=== PATIENT | female | born 1960 | race Caucasian/White ===

== ENCOUNTER 2017-08-16 13:20 | Emergency (ER) | payer MEDICAID ==
[~2017-08-16] VITALS: Ht 167.6 cm; Wt 113.9 kg
[2017-08-16 13:22] VITALS: Ht 167.6 cm; Wt 113.9 kg
[2017-08-16] MEDS ORDERED: ONDANSETRON 4 MG INJ IV STA (16:09)
--- NOTE | 2017-08-16 16:22 | ERD ---
ER Documentation Chief Complaint Chief Complaint n/v for past 2 weeks, was seen at [facility] last saturday then by pmd laron SHERWOOD This a 56-year-old female who presents the emergency department today complaining of dizziness nausea and some headache for the past 13 days. Patient states that she was seen at an outside hospital and was given [place] and Zofran but her symptoms have not improved. She did state that she follow-up with her primary care doctor and was given nasal spray. Denies any fevers or chills. ROS All systems reviewed and are negative except as per history of present illness. Medications Home Meds Active Scripts Naproxen* (Naprosyn*) 500 Mg Tablet, 500 MG PO BID Y for PAIN AND/OR INFLAMMATION, #30 TAB Prov:SHENG CARTAGENA PA-C 08/16/17 Meclizine Hcl* (Antivert*) 12.5 Mg Tab, 25 MG PO Q6H Y for DIZZINESS, #20 TAB Prov:SHENG CARTAGENA PA-C 08/16/17 Ondansetron Hcl* (Zofran*) 4 Mg Tablet, 4 MG PO Q6H for NAUSEA AND/OR VOMITING, #30 TAB Prov:SHENG CARTAGENA PA-C 08/16/17 Reported Medications [None] No Conflict Check 07/28/12 Allergies Allergies: Coded Allergies: No Known Allergies (Verified Allergy, 07/28/12) PMhx/Soc History of Surgery: Yes (TONSILS,BTL) Anesthesia Reaction: No Hx Neurological Disorder: No Hx Respiratory Disorders: No Hx Cardiac Disorders: No Hx Psychiatric Problems: No Hx Miscellaneous Medical Probl: No Hx Alcohol Use: No Hx Substance Use: No Hx Tobacco Use: No Smoking Status: Never smoker Physical Exam Vitals Vital Signs Date Time Temp Pulse Resp B/P Pulse Ox O2 Delivery O2 Flow Rate FiO2 08/16/17 13:22 97.9 63 18 129/69 97 Physical Exam Const: NAD Head: Atraumatic Eyes: Normal Conjunctiva. PERRLA, EOM int act ENT: Normal. Nose no drainage. Throat erythema no exudate Neck: Full range of motion..~ No meningismus. Resp: Clear to auscultation bilaterally Cardio: Regular rate and rhythm, no murmurs Abd: Soft, non tender, non distended. Normal bowel sounds Skin: No petechiae or rashes Back: No midline or flank tenderness Ext: No cyanosis, or edema Neur: Awake and alert cranial nerves II through XII intact. No gait ataxia. Negative Romberg. Psych: Normal Mood and Affect Result Diagram: 08/16/17 1632 08/16/17 1632 Results 24 hrs Laboratory Tests Test 08/16/17 16:30 08/16/17 16:32 Urine Color YELLOW Urine Clarity CLEAR Urine pH 6.0 Urine Specific [place] 1.012 Urine Ketones 1+mg/dL Urine Nitrite NEGATIVEmg/dL Urine Bilirubin NEGATIVEmg/dL Urine Urobilinogen NEGATIVEmg/dL Urine Leukocyte Esterase TRACELeu/ul Urine Microscopic RBC 1/HPF Urine Microscopic WBC 5/HPF Urine Squamous Epithelial Cells FEW/HPF Urine Hemoglobin 1+mg/dL Urine Glucose NEGATIVEmg/dL Urine Total Protein NEGATIVEmg/dl White Blood Count 9.810^3/ul Red Blood Count 4.6010^6/ul Hemoglobin 13.3g/dl Hematocrit 41.0% Mean Corpuscular Volume 89.1fl Mean Corpuscular Hemoglobin 28.9pg Mean Corpuscular Hemoglobin Concent 32.4g/dl Red Cell Distribution Width 14.1% Platelet Count 13555^3/UL Mean Platelet Volume 10.2fl Neutrophils % 75.8% Lymphocytes % 19.6% Monocytes % 3.7% Eosinophils % 0.1% Basophils % 0.5% Nucleated Red Blood Cells % 0.0/100WBC Neutrophils # 7.510^3/ul Lymphocytes # 1.910^3/ul Monocytes # 0.410^3/ul Eosinophils # 0.010^3/ul Basophils # 0.110^3/ul Nucleated Red Blood Cells # 0.010^3/ul Sodium Level 144mmol/L Potassium Level 4.0mmol/L Chloride Level 105mmol/L Carbon Dioxide Level 25mmol/L Anion Gap 18 Blood Urea Nitrogen 9mg/dl Creatinine 0.55mg/dl Glucose Level 109mg/dl Calcium Level 9.3mg/dl Total Bilirubin 0.8mg/dl Direct Bilirubin 0.00mg/dl Indirect Bilirubin 0.8mg/dl Aspartate Amino Transf (AST/SGOT) 22IU/L Alanine Aminotransferase (ALT/SGPT) 33IU/L Alkaline Phosphatase 104IU/L Total Protein 7.7g/dl Albumin 4.3g/dl Globulin 3.40g/dl Albumin/Globulin Ratio 1.26 Current Medications Medications (Trade) Dose Ordered Sig/Kadeem Route PRN Reason Start Time Stop Time Status Last Admin Dose Admin Ondansetron HCl (Zofran Inj) 4 mg ONCE STAT IV 08/16/17 16:09 08/16/17 16:12 DC 08/16/17 16:26 Meclizine HCl (Antivert) 25 mg ONCE ONCE PO 08/16/17 16:30 08/16/17 16:31 DC 08/16/17 16:27 Ketorolac Tromethamine (Toradol) 30 mg ONCE STAT IV 08/16/17 16:56 08/16/17 16:57 DC 08/16/17 16:59 DIAGNOSTIC IMAGING REPORT Patient: MAEGAN KHAN : 1960 Age: 56 Sex: F MR #: [id number] DOS: 08/16/17 0000 Ordering MD: SHENG CARTAGENA PA-C Location: [facility] Room/Bed: PROCEDURE: CT Brain without contrast. CLINICAL INDICATION: Headaches. Neurologic deficit TECHNIQUE: A CT of the brain was performed on multidetector high-resolution CT scanner utilizing axial sections from the skull base through the vertex without contrast. One or more of the following dose reduction techniques were used: Automated exposure control, Adjustment of the mA and/or kV according to patient size, and/or use of iterative reconstruction technique. DICOM images are available. DOSE: CTDI = 44 mGy and the DLP = 720 mGy-cm. COMPARISON: None available FINDINGS: No acute intracranial hemorrhage, significant mass effect or midline shift. The saha-white differentiation is grossly preserved. The ventricles are normal in size for age. No significant opacification of the visualized paranasal sinuses or mastoids. IMPRESSION: No acute intracranial findings. RPTAT: AA .Keenan Hays MD, Date Time Electronically viewed and signed by .Keenan Hays MD, on 08/16/2017 16:40 .T/ CC: SHENG CARTAGENA PA-C Procedures/[facility] This 56-year-old female who presents the emergency department today complaining of dizziness, nausea and slight headache is been intermittent for the past 2 weeks. Patient was seen at [place] approximately 1 week ago and patient did bring paperwork with her and it looks like she was evaluated for abdominal pain. When questioned patient about that she said that she told that she was dizzy but also had abdominal pain at that time and her workup was negative. Patient denies any abdominal pain today. Patient indicated that the dizziness is worse when she moves her head to the right. She is afebrile and otherwise well-appearing however given her duration of symptoms I did obtain laboratory workup as well as a head CT Laboratory workup shows no elevated white blood cell count. She is not anemic. Platelets are within normal limits. UA shows leukocyte esterase Urine test is negative Head CT non contrast shows no acute intracranial findings. There is no intracranial hemorrhage, mass-effect or midline shift EKG read and interpreted by Dr. Ybarra rate [address] elevation. No QT prolongation. Normal sinus rhythm. Low suspicion for acute [place]. Patient has no focal neurologic deficits and she has a negative Romberg gait ataxia. Patient was given Zofran, toradol, and meclizine here in the emergency department symptoms improved. Patient symptoms at this time is consistent with dizziness of uncertain etiology however may be positional vertigo nausea and vomiting. Patient is not actively vomiting here in the emergency department.. Low suspicion for anemia, sepsis, severe acute bacterial infection, cardiac abnormalities as cause of dizziness. I have explained this to the patient. Patient was given a prescription for Naprosyn, Zofran and meclizine for home. I have explained to the patient that the [place] she was taking for abdominal pain may be exacerbating her symptoms and she should only take it for severe pain. Patient understood. I also explained to the patient that she may need possible referral to ENT or neurology specialist if her symptoms continue. Patient understood At this time the patient is stable for discharge and outpatient management. Patient should follow up with their PCP in the next 1-2 days. They may return to the emergency department sooner for any persistent or worsening of symptoms. Patient understood and agreed with the plan. Departure Diagnosis: Primary Impression: Dizziness Additional Impression: Nausea and vomiting Vomiting type: unspecified Vomiting Intractability: non-intractable Qualified Code: R11.2 - Non-intractable vomiting with nausea, unspecified vomiting type Condition: SHENG Peralta PA-C Aug 16, 2017 16:22
[2017-08-16] MEDS ORDERED: MECLIZINE 12.5 MG TAB PO ONE (16:30)
--- NOTE | 2017-08-16 16:40 | RADRPT ---
PROCEDURE: CT Brain without contrast. CLINICAL INDICATION: Headaches. Neurologic deficit TECHNIQUE: A CT of the brain was performed on multidetector high-resolution CT scanner utilizing a xial sections from the skull base through the vertex without contrast. One or more of the following dose reduction techniques were used: Automated exposure control, Adjustment of the mA and/or kV acc ording to patient size, and/or use of iterative reconstruction technique. DICOM images are available . DOSE: CTDI = 44 mGy and the DLP = 720 mGy-cm. COMPARISON: None available FINDINGS: No acute intracranial hemorrhage, significant mass effect or midline shift. The saha-white different iation is grossly preserved. The ventricles are normal in size for age. No significant opacification of the visualized paranasal sinuses or mastoids. IMPRESSION: No acute intracranial findings. RPTAT: AA .Keenan Hays MD, MD Date Time Electronically viewed and signed by .Keenan Hays MD, on 08/16/2017 16:40 .T/
[2017-08-16 16:55] LABS: BASOPHIL # 0.1 10^3/ul (0.0-0.1); BASOPHILS % 0.5 % (0.0-2.0); EOSINOPHILS % 0.1 % (0.0-7.0); HEMOGLOBIN 13.3 g/dl (12.0-16.0); LYMPHOCYTES # 1.9 10^3/ul (0.8-2.9); LYMPHOCYTES % 19.6 % (15.0-51.0); MEAN CORPUSCULAR HEMOGLOBIN 28.9 pg (29.0-33.0); MEAN CORPUSCULAR HGB CONC 32.4 g/dl (32.0-37.0); MEAN CORPUSCULAR VOLUME 89.1 fl (82.0-101.0); MEAN PLATELET VOLUME 10.2 fl (7.4-10.4); MONOCYTE # 0.4 10^3/ul (0.3-0.9); MONOCYTES % 3.7 % (0.0-11.0); NEUTROPHIL # 7.5 10^3/ul (1.6-7.5); NEUTROPHILS % 75.8 % (39.0-77.0); PLATELET COUNT 296 10^3/UL (140-415); RED CELL DISTRIBUTION WIDTH 14.1 % (11.5-14.5); WHITE BLOOD COUNT 9.8 10^3/ul (4.8-10.8)
[2017-08-16] MEDS ORDERED: KETOROLAC 30 MG INJ IV STA (16:56)
[2017-08-16 17:03] LABS: ADD UMIC YES; UR ASCORBIC ACID NEGATIVE (NEGATIVE); UR BILIRUBIN (Dip) NEGATIVE (NEGATIVE); UR BLOOD (Dip) 1+ mg/dL (NEGATIVE); UR CLARITY CLEAR (CLEAR); UR COLOR YELLOW (YELLOW); UR GLUCOSE (Dip) NEGATIVE (NEGATIVE); UR KETONES (Dip) 1+ mg/dL (NEGATIVE); UR LEUKOCYTE ESTERASE (Dip) TRACE Leu/ul (NEGATIVE); UR NITRITE (Dip) NEGATIVE (NEGATIVE); UR RBC 1 /HPF (0-5); UR SPECIFIC GRAVITY (Dip) 1.012 (1.003-1.030); UR SQUAMOUS EPITHELIAL CELL FEW /HPF (FEW); UR TOTAL PROTEIN (Dip) NEGATIVE (NEGATIVE); UR UROBILINOGEN (Dip) NEGATIVE (NEGATIVE)
[2017-08-16 17:18] LABS: ALBUMIN 4.3 g/dl (3.3-4.9); ALBUMIN/GLOBULIN RATIO 1.26; BILIRUBIN,INDIRECT 0.8 mg/dl (0-1.1); BILIRUBIN,TOTAL 0.8 mg/dl (0.2-1.3); CALCIUM 9.3 mg/dl (8.4-10.2); CREATININE 0.55 mg/dl (0.44-1.00); TOTAL PROTEIN 7.7 g/dl (6.1-8.1)
[2017-08-16] MEDS ORDERED: ONDA4TAB8 PO (17:25)
[2017-08-16] MEDS ORDERED: MECL12.574 PO (17:26)
[2017-08-16] MEDS ORDERED: NAPR-260 PO (17:26)
== END 2017-08-16 17:55 | disposition home or self-care (01) ==
LOC: FTE 13:20
DX: R42 Dizziness and giddiness (principal); R11.2 Nausea with vomiting, unspecified
CPT/HCPCS: 70450; 80053; 81001; 85025; 93005; 96374; 96375; J1885; J2405; Z7502; Z7610